=== PATIENT | male | born 1955 | race Caucasian/White ===

== ENCOUNTER 2024-08-09 09:57 | Outpatient (CLI) | payer OTHER, SELFPAY ==
--- NOTE | 2024-08-09 10:04 | XR_ITS ---
FINAL REPORT CLINICAL HISTORY: DEGENERATIVE JOINT DISEASE nki; chronic pain FINDINGS: RIGHT ANKLE: 2 views of the right ankle were obtained. There is no acute fracture or dislocation. The mortise is intact. There is a 2 cm os trigonum. The joint spaces are intact. Moderate soft tissue edema is seen about the ankle. IMPRESSION: No acute fracture Reviewed, Interpreted and Dictated by Clay Liu MD Transcribed by Kori Moreno Authenticated and [facility]
== END 2024-08-09 23:59 | disposition home or self-care (01) ==
LOC: RAD 10:01
PROVIDERS: PCP Family Medicine; Visit Provider Chiropractor
DX: M19.90 Unspecified osteoarthritis, unspecified site (principal)
CPT/HCPCS: 73600